=== PATIENT | female | born 1985 | race Caucasian/White ===

== ENCOUNTER 2017-02-14 00:10 | Emergency (ER) | payer OTHER ==
[~2017-02-14] VITALS: Ht 172.7 cm; Wt 55.9 kg
[~2017-02-14 00:10] MED LIST: PENI500T PO; TRAM50TA2 PO
[2017-02-14 00:11] VITALS: BP 127/84; PULSE 90; RESP 20; O2SAT 97
--- NOTE | 2017-02-14 00:23 | ED.REPORT ---
HPI-Dental/Mouth Prob Date of Service Feb 14, 2017 ED Provider: Serafin Salguero MD Pt is a 32 y.o. female who presents to the ED c/o right upper molar pain onset 1 week ago. Pt reports associated headache and right ear pain. She denies fever. She denies recent drug use. Pt states she would prefer not to have any narcotics. Nursing Notes Stated Complaint: DENTAL PAIN Chief Complaint: Dental Nursing Notes Reviewed: Yes ([employer], [employer] not reconciled) Allergies: Coded Allergies: No Known Allergies (Unverified , 02/14/17) Scheduled Penicillin V Potassium (Penicillin V Potassium) 500 Mg Tablet 500 MG PO QID Scheduled PRN Tramadol (Tramadol) 50 Mg Tablet 50 MG PO Q4H PRN PRN For Pain General Time Seen by MD: 00:19 Chief Complaint Tooth pain Hx Obtained From: Patient Arrived By: Walk-in Onset Occurred: 1 week ago Symptom Duration: Since onset Location: : Tooth upper R molar Quality: Painful Severity: Current: Severe Past Medical History Past Medical History Notes: Last ED visit dental abscess in 2016 Past Medical History h/o substance abuse Social History Alcohol Use: In 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 Neurologic: Reports: Headache Physical Exam Initial Vital Signs Vital Signs (First) Date Time Temp Pulse Resp B/P Pulse Ox O2 Delivery O2 Flow Rate FiO2 02/14/17 00:11 36.9 90 20 127/84 97 Room Air Initial VS: Reviewed, Vital signs normal Head / Eyes: Atraumatic, Normocephalic Respiratory: Breath sounds normal, No respiratory distress Cardiovascular: Regular rate & rhythm, Intact distal pulses Abdomen / GI: No distention Extremities: Vascular intact, Neuro intact Skin: Warm, Dry, No cyanosis Neurologic: Alert, Oriented, Nonfocal Psychiatric: Mood/affect normal, Behavior normal, Normal thought content ENT: Atraumatic, Airway patent, Mucous membranes moist Dental / Gums: Positive: Decay extensive (Tooth 3), Dental caries present, Negative: Dental abscess Neck: Atraumatic General/Constitutional: Awake, Alert, No acute distress, Well appearing, Well developed, Well hydrated, Well nourished, Not toxic appearing Procedures Dental Nerve Block Dental Nerve Block Note: Tooth 3 Time: 00:31 Block Performed by: ED physician Consent / Setup / Site Prep: Informed consent provided, Consent from patient , Time-out performed, Hand hygiene observed, Stand sterile technique Anesthesia: Topical benzocaine, Post alveolar block Local Anesthesia: Bupivacaine 0.5% (w epi), Other (30g) Post-Procedure / Complications: No complications, Condition improved, Tolerated procedure well, Patient stable Dental Nerve Block Note: Tooth 4 Time: 00:50 Block Performed by: ED physician Consent / Setup / Site Prep: Informed consent provided, Consent from patient , Time-out performed, Topical anesthetic alisha, Hand hygiene observed, Stand sterile technique Anesthesia: Topical benzocaine, Post alveolar block Local Anesthesia: Bupivacaine 0.5% Post-Procedure / Complications: No complications, Condition improved, Tolerated procedure well, Patient stable Re-Eval/Medical Decision Med Decision/Clinical Course This is a 32-year-old female presents with right-sided dental pain. She is multiple dental caries present at the current tooth causing increasing discomfort which she is taking ibuprofen and Tylenol and had inadequate relief so came to the ED requesting assistance. She has a history of prior substance abuse with methamphetamine and wishes to avoid narcotics. On exam she does have dental caries, but I do not see a vida abscess to be amenable to incision or drainage. She has no evidence of Zaid angina, or airway compromise. Or adenopathy. She has no heart murmurs. The patient underwent a dental block with marked improvement. She is being started a course of penicillin. Dosing for Tylenol and ibuprofen as discussed- patient initially concerned she might be taking too much, but describes slight underdosing. He is advised to need to follow-up with a dentist for definitive care. And is discharged in improved condition Source of Hx: Old records Re-Evaluation/Progress #1: Time of Eval: 00:31 Patient Status: Pain improved Re-Evaluation/Progress Note: Dental block performed. Discussed plan for discharge, pt understands and agrees with plan. Re-Evaluation/Progress #2: Time of Eval: 00:50 Patient Status: Condition improved, Pain improved Re-Evaluation/Progress Note: Pt rechecked. Pt request a dental block for tooth 4. Differential Diagnosis: Negative: Acute nec ulcer gingivit, Alveolar fracture, Alveolar osteitis, Aphthous ulcer, Facial cellulitis, Frenulum laceration, Hand , foot, mouth disease, Herpetic eruption, Laceration hard palate, Laceration soft palate, Post-extraction bleeding, Tooth eruption, Tooth subluxation, Uvulitis Counseled Regarding: Diagnosis, Need for follow-up, When/why to return to ED Discharge & Departure Primary Impression: Pain due to dental caries Disposition: Home Discharge Condition All VS Reviewed: Yes Condition: Improved Additional Instructions: 1. Take the antibiotic penicillin VK 500mg three times a day for 10 days.2 2. You can take ibuprofen 800mg up to three times a day for pain (Do not take more) 3. You can also take tylenol 1000mg up to 4 times a day. (Do not take more) 4. You do need to follow up with a dentist for definitive care. 5. If you need a primary care provider, follow up with the residency clinic. Referrals: [facility]CP (PCP) [facility] Edi Attestation Portions of this note were transcribed by Ursula Wallace. I, Dr. Salguero personally performed the history, physical exam and medical decision-making; I reviewed and confirmed the accuracy of the information in the transcribed note. Signed by: Edi Pugh, 02/14/17 and 0059 copies to: [facility] Serafin Salguero MD Feb 14, 2017 00:23 URSULA WALLACE Feb 14, 2017 00:30
[2017-02-14] MEDS ORDERED: _Penicillin VK 500 mg Tablet PO SCH (08:30)
== END 2017-02-14 01:10 | disposition home or self-care (01) ==
LOC: SED 00:10
DX: K02.9 Dental caries, unspecified (principal)